=== PATIENT | female | born 1995 | race Two or more races ===

== ENCOUNTER 2020-02-03 01:59 | Emergency (ER) | payer OTHER ==
[~2020-02-03] VITALS: Ht 160 cm; Wt 90.7 kg
== END 2020-02-03 03:12 | disposition home or self-care (01) ==
LOC: ER 01:59
DX: S90.32XA Contusion of left foot, initial encounter (principal); S90.112A Contusion of left great toe without damage to nail, initial encounter; W18.09XA Striking against other object with subsequent fall, initial encounter; Y93.89 Activity, other specified; Y92.018 Other place in single-family (private) house as the place of occurrence of the external cause; Y99.8 Other external cause status

== ENCOUNTER 2021-02-10 18:33 | Emergency (ER) | payer OTHER ==
[~2021-02-10] VITALS: Ht 160 cm; Wt 86.2 kg
== END 2021-02-10 22:39 | disposition home or self-care (01) ==
LOC: ER 18:33
DX: O26.859 Spotting complicating pregnancy, unspecified trimester (principal)

== ENCOUNTER 2022-06-14 17:35 | Emergency (ER) | payer OTHER ==
[~2022-06-14] VITALS: Ht 160 cm; Wt 81.6 kg
[2022-06-14] MEDS ORDERED: DUI500 PO (19:50)
[2022-06-14] MEDS ORDERED: TUSNEL LIQUID178 ML PO (19:50)
== END 2022-06-14 20:05 | disposition home or self-care (01) ==
LOC: ER 17:35
DX: J03.90 Acute tonsillitis, unspecified (principal); Z20.822 Contact with and (suspected) exposure to COVID-19

== ENCOUNTER 2025-01-30 21:05 | Emergency (ER) | payer OTHER ==
[~2025-01-30] VITALS: Ht 160 cm; Wt 86.2 kg
[~2025-01-30 21:05] MED LIST: DUI500 PO; TUSNEL LIQUID178 ML PO
[2025-01-30] MEDS ORDERED: KETOROLAC TROMETHAMINE 30 MG VIAL ONE (21:58)
[2025-01-30] MEDS ORDERED: ONDANSETRON HCL 2 MG/ML VIAL ONE (21:58)
[2025-01-30] MEDS ORDERED: FAMOTIDINE/PF 20 MG/2 ML VIAL ONE (21:58)
[2025-01-30] MEDS ORDERED: 0.9 % SODIUM CHLORIDE 1,000 ML IV ONE (22:00)
[2025-01-30] MEDS ORDERED: KETOROLAC TROMETHAMINE 30 MG VIAL IV ONE (22:00)
[2025-01-30] MEDS ORDERED: FAMOtidine 10 MG/ML (4ML VIAL) IV ONE (22:00)
[2025-01-30] MEDS ORDERED: ONDANSETRON HCL 2 MG/ML VIAL IV ONE (22:00)
[2025-01-30] MEDS ORDERED: PEPCID AC20 MG PO (23:09)
[2025-01-30] MEDS ORDERED: LEVSIN/SL0.125 MG SL (23:09)
[2025-01-30] MEDS ORDERED: ZOFRAN8 MG PO (23:09)
== END 2025-01-30 23:41 | disposition home or self-care (01) ==
LOC: ER 21:05
DX: K52.89 Other specified noninfective gastroenteritis and colitis (principal)